=== PATIENT | male | born 2000 | race African-American/Black ===

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

== ENCOUNTER 2021-05-28 10:59 | Emergency (ER) | payer SELFPAY ==
[~2021-05-28] VITALS: Ht 177.8 cm; Wt 77.2 kg
[2021-05-28] MEDS ORDERED: BUPIVACAINE MPF 0.5% 30 ML VIAL. INJ ONE (11:30)
[2021-05-28] MEDS ORDERED: AMOXICILLIN/K CLAV 875/125MG TABLET. ONE (11:54)
[2021-05-28] MEDS ORDERED: AMOXICILLIN/K CLAV 875/125MG TABLET. PO ONE (12:00)
--- NOTE | 2021-05-28 12:04 | PHYS DOC ---
Past Medical History Past Medical History: No Pertinent History Past Surgical History: No Surgical History Smoking Status: Never Smoker Alcohol Use: None Drug Use: None General Adult EDM: Chief Complaint: DENTAL PROBLEM HPI: HPI: Patient is a 21 year old male presents emergency department complaining of a denise il in his mouth for the past 2 days. Patient reports it was painful up until approximately 5 hours ago when it seemed to have popped, patient noted purulent drainage into his mouth which she spit out. Patient states it does not hurt now that the boil has popped. Patient denies having any dental abscesses or dental problems in the past. Patient denies being on any antibiotics over the past year. Patient denies allergies to medications, patient denies taking any prescription medications at home. Patient denies any shortness of breath, denies problems swallowing, denies any swelling of his lips or tongue. Patient denies any throat pain or neck pain. Patient denies any fever or chills. Denies nausea vomiting diarrhea or abdominal pain. Patient denies chest pain. patient denies any other physical complaints or physical concerns, the patient does not remember his last tetanus immunization update. Review of Systems: Review of Systems: 14 body systems of review of systems have been reviewed. See HPI for pertinent positives and negative responses, otherwise all other systems are negative, nonpertinent or noncontributory. Constitutional: Negative except as outlined in HPI above. Skin: Negative except as outlined in HPI above. Eyes: Negative except as outlined in HPI above. HENT: Negative except as outlined in HPI above. Respiratory: Negative except as outlined in HPI above. Cardiovascular: Negative except as outlined in HPI above. GI: Negative except as outlined in HPI above. : Negative except as outlined in HPI above. Musculoskeletal: Negative except as outlined in HPI above. Integument: Negative except as outlined in HPI above. Neurologic: Negative except as outlined in HPI above. Endocrine: Negative except as outlined in HPI above. Lymphatic: Negative except as outlined in HPI above. Psychiatric: Negative except as outlined in HPI above. Heart Score: C/O Chest Pain: No Risk Factors: Risk Factors: DM, Current or recent (<one month) smoker, HTN, HLP, family history of CAD, obesity. Risk Scores: Score 0 - 3: 2.5% MACE over next 6 weeks - Discharge Home Score 4 - 6: 20.3% MACE over next 6 weeks - Admit for Clinical Observation Score 7 - 10: 72.7% MACE over next 6 weeks - Early Invasive Strategies Current Medications: Current Medications Medications (Trade) Dose Ordered Sig/[facility] Start Time Stop Time Status Last Admin Dose Admin Bupivacaine HCl (Sensorcaine Mpf 0.5%) 30 ml 1X ONCE 05/28/21 11:30 05/28/21 11:31 DC 05/28/21 11:25 30 ML Allergies: Allergies: Allergies Coded Allergies Type Severity Reaction Last Updated Verified No Known Drug Allergies 12/31/16 No Physical Exam: PE: Constitutional: Appears well, nontoxic, uncomfortable. 21-year-old male no apparent distress. HENT: Normocephalic, atraumatic, bilateral external ears normal, oropharynx moist, no oral exudates, nose normal. Uvula midline. No trismus. No drooling. Maintaining secretions. No phonation changes. No facial swelling. No periapical abscess. Posterior gingival abscess between teeth 11 and 12, mild pain to palpation, draining white purulent material with palpation, boggy fluctuance. No other dental caries appreciated. Eyes: PERRLA, EOMI, conjunctiva normal, no discharge. Neck: Normal range of motion, trachea midline, normal ROM, no stridor, no nuchal rigidity, no meningeal signs. Cardiovascular: Normal peripheral perfusion, no cyanosis appreciated. Lungs & Thorax: Normal WOB. No tachypnea. No audible adventitious lung sounds appreciated, no respiratory distress appreciated. Skin: Warm, dry, no erythema, no rash, normal for ethnicity. Musculoskeletal: Normal ROM. Neurologic: Alert and oriented X 3, normal motor function, normal sensory function, no focal deficits noted. Psychologic: Affect normal, judgement normal, mood normal. EKG: EKG: [] Radiology/Procedures: Radiology/Procedures: [] Course & Med Decision Making: Course & Med Decision Making Pertinent Labs and Imaging studies reviewed. (See chart for details) 21-year-old male, vital signs reviewed, presents emergency department complaining of a boil in his mouth. Physical examination reveals gingival abscess between teeth 11 and 12 oral side with scant drainage from central punctum. Oval shaped measuring 1.2 cm in diameter. Discussed with patient will I&D, start on antibiotics Augmentin twice daily x14 days. Patient is amenable to this plan. See I&D note. The patient's tetanus status was brought up-to-date with Adacel/Tdap today in the emergency department. Patient tolerated I&D procedure well, denies any pain at this time. Patient continues to speak in normal voice tones after I&D procedure, a dental block procedure was not performed, Marcaine was injected into the abscess site. This is unlikely Ludewig's angina as patient does not have throat pain, shortness of breath, or airway disturbance. The patient has no lymphadenopathy of the head or neck. The patient is speaking in normal voice tones. Discussed with the patient all findings and diagnostic testing as well as the need to follow-up with their primary care provider for further evaluation and treatment or return to the ED if any new or worsening symptoms. Strict return precautions were also discussed at length, the patient voiced understanding and agreement with the discharge planning. The patient was nontoxic in appearance, in no apparent distress, and hemodynamically stable at the time of disposition. Dragon Disclaimer: Dragon Disclaimer: This electronic medical record was generated, in whole or in part, using a voice recognition dictation system. Incision and Drainage Indication: Gingival abscess Procedure: The patient was positioned appropriately. Local anesthesia was achieved with 1 cc half percent Marcaine. With an 11 blade scalpel an incision was then made over the apex of the lesion and 1 cc purulent material was expressed. Loculations were disrupted with curved forcep, the drainage cavity was irrigated with normal saline 10 cc. The patients tetanus status updated today in the emergency department. The patient tolerated the procedure well. Complications: none. Departure Departure Impression: Primary Impression: Abscess of upper gingiva Disposition: 01 HOME / SELF CARE / HOMELESS Condition: GOOD Referrals: NO PCP (PCP) Patient Instructions: Abscessed Tooth, [id number] Additional Instructions: You were seen today in the emergency department for a abscess of the gingiva tissue near your teeth. A incision and drainage was performed with a scant amount of purulent material expressed. As we discussed, I am starting you on an antibiotic that you will take twice a day for the next 14 days. Please take as directed. Please follow-up with a dentist soon for ongoing care of the sepsis. Thank you for visiting our Emergency Department. It was a pleasure taking care of you today in the emergency department and we appreciate you trusting us with your care. If any additional problems come up don't hesitate to return to visit us. Please follow up with your primary care provider so they can plan additional care if needed and know about the problem that you had. If symptoms worsen come back to the Emergency Department. Any concerning symptoms that start such as chest pain, shortness of air, weakness or numbness on one side of the body, running high fevers or any other concerning symptoms return to the ER. EMERGENCY DEPARTMENT GENERAL DISCHARGE INSTRUCTIONS Thank you for coming to [facility] Emergency Department (ED) today and trusting us with you care. We trust that you had a positive experience in our Emergency Department. If you wish to speak to the department management, you may call the Director at [phone]. YOUR FOLLOW UP INSTRUCTIONS ARE FOLLOWS: 1. Do you have a private Doctor? If you do not have a private doctor, please ask for a resource list of physicians or clinics that may be able to assist you with follow up care. 2. The Emergency Physicain has interpreted your x-rays. The X-Ray specialist will also review them. If there is a change in the findings, you will be notified in 48 hours when at all possible. 3. A lab test or culture has been done, your results will be reviewed and you will be notified if you need a change in treatment. ADDITIONAL INSTRUCTIONS AND INFORMATION: 1. Your care today has been supervised by a physician who is specially trained in emergency care. Many problems require more than one evaluation for a complete diagnosis and treatment. We recommend that you schedule your follow up appointment as recommended to ensure complete treatment of you illness or injury. If you are unable to obtain follow up care and continue to have a problem, or if your condition worsens, we recommend that you return to the ED. 2. We are not able to safely determine your condition over the phone nor are we able to give sound medical advice over the phone. For these safety reasons, if you call for medical advice we will ask you to come to the ED for further evaluation. 3. If you have any questions regarding these discharge instructions please call the ED at [phone]. SAFETY INFORMATION: In the interest of safety, wellness, and injury prevention; we encourage you to wear your sealbelt, if you smoke; quite smoking, and we encourage family to use a protective helmet for bicycling and other sporting events that present an increased risk for head injury. IF YOUR SYMPTOMS WORSEN OR NEW SYMPTOMS DEVELOP, OR YOU HAVE CONCERNS ABOUT YOUR CONDITION; OR IF YOUR CONDITION WORSENS WHILE YOU ARE WAITING FOR YOUR FOLLOW UP APPOINTMENT; EITHER CONTACT YOUR PRIMARY CARE DOCTOR, THE PHYSICIAN WHOSE NAME AND NUMBER YOU WERE GIVEN, OR RETURN TO THE ED IMMEDIATELY. Scripts Amoxicillin/Potassium Clav (AUGMENTIN 875-125 TABLET) 1 Each Tablet 1 TAB PO BID for 14 Days, #28 TAB 0 Refills Prov: HOSEA BROWN APRN 05/28/21 Ibuprofen (IBUPROFEN) 600 Mg Tablet 600 MG PO PRN Q6HRS PRN for INFLAMMATION, #20 TAB 0 Refills Prov: HOSEA BROWN APRN 05/28/21 HOSEA BROWN APRN May 28, 2021 12:04
[2021-05-28] MEDS ORDERED: AMOX1TAB61 PO (12:23)
[2021-05-28] MEDS ORDERED: IBUP-1007 PO (12:23)
[2021-05-28] MEDS ORDERED: DIPH,PERTUSS(ACELL),TET VAC/PF 0.5 ML SYRINGE. VAX IM ONE (12:30)
[2021-05-28 12:40] VITALS: BP 140/78
== END 2021-05-28 12:40 | disposition home or self-care (01) ==
LOC: ER 10:59
DX: K05.319 Chronic periodontitis, localized, unspecified severity (principal)
CPT/HCPCS: 41800; 90471; 90715; 99284; J3490